=== PATIENT | female | born 1955 | race Two or more races ===

== ENCOUNTER 2024-07-20 09:42 | Outpatient (CLI) | payer OTHER | END 2024-07-20 09:48 | disposition home or self-care (01) | LOC: MAMO-SONO 09:42 | PROVIDERS: ATTEND Specialist | DX: N60.12 Diffuse cystic mastopathy of left breast (principal); Z80.3 Family history of malignant neoplasm of breast; Z12.31 Encounter for screening mammogram for malignant neoplasm of breast ==